=== PATIENT | female | born 1970 ===

== ENCOUNTER 2021-03-05 13:04 | Outpatient (CLI) | payer OTHER | END 2021-03-05 13:42 | disposition home or self-care (01) | LOC: OFIC 805 13:04 | PROVIDERS: ATTEND Otolaryngology Otology & Neurotology | DX: R59.0 Localized enlarged lymph nodes (principal) ==

== ENCOUNTER 2021-03-19 08:14 | Outpatient (CLI) | payer OTHER | END 2021-03-19 08:39 | disposition home or self-care (01) | LOC: SONOGRAMA 08:14 | PROVIDERS: ATTEND Pathology Anatomic Pathology & Clinical Pathology | DX: R22.1 Localized swelling, mass and lump, neck (principal); R58 Hemorrhage, not elsewhere classified ==